=== PATIENT | male | born 2000 | race American Indian/Alaskan Native ===

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

== ENCOUNTER 2021-11-08 23:51 | Emergency (ER) | payer OTHER, SELFPAY ==
[2021-11-09 00:36] VITALS: BP 149/66; PULSE 86; RESP 18; TEMP 36.2; O2SAT 99; BMI 33.3
--- NOTE | 2021-11-09 01:12 | ED_ITS ---
HPI - Burn/Smoke Inhalation General Chief complaint: Burn/Smoke Inhalation Stated complaint: got acid on his arm at work Time Seen by Provider: 11/09/21 01:12 Source: patient Mode of arrival: Ambulatory History of Present Illness HPI Narrative: Patient is a 21-year-old male who presents with left wrist burn. He was at work cleaning when he spilled some acetone on his left wrist. It has been about 24 hours he thought that it was getting bigger. He he has no medical history. Related Data Previous Rx's Medication Instructions Recorded oxycodone-acetaminophen 5 mg-325 1 tab PO Q4HP PRN #30 tabs 10/15/16 mg tablet loperamide 2 mg tablet 2 mg PO Q4H #14 tabs 12/15/18 Allergies Allergy/AdvReac Type Severity Reaction Status Date / Time haloperidol [From Haldol] Allergy Severe Agitated Verified 05/02/19 09:59 Review of Systems Review of Systems Narrative: GENERAL: Denies chills,fever HEENT: Denies throat pain RESPIRATORY: Denies dyspnea, cough, wheezing CARDIOVASCULAR: Denies chest pain, palpitations GASTROINTESTINAL: Denies nausea, vomiting MUSCULOSKELETAL: Denies extremity pain, injury SKIN: See HPI NEUROLOGIC: Denies weakness, dizziness, headache, numbness 8 point review of systems is negative except for those stated above and HPI Patient History Medical History History of appendicitis Social History Smoking Status: Current some day smoker Smoking Status: Current some day smoker tobacco type: cigarettes alcohol intake frequency: 0-2 drinks per day Substance Use Type: does not use Exam Initial Vital Signs Initial Vital Signs: Vital Signs Temperature 97.2 F L 11/09/21 00:36 Pulse Rate 86 11/09/21 00:36 Respiratory Rate 18 11/09/21 00:36 Blood Pressure 149/66 H 11/09/21 00:36 Pulse Oximetry 99 11/09/21 00:36 Oxygen Delivery Method 11/09/21 00:36 GENERAL: Well-appearing, well-nourished and in no acute distress. CARDIOVASCULAR: peripheral pulses in tact, cap refill <2 sec RESPIRATORY: No respiratory distress, speaks in full sentences without difficulty EXTREMITIES: Normal range of motion, no clubbing or edema. Neurovascularly intact NEUROLOGICAL: Cranial nerves II through XII grossly intact. Normal gait and s peech. SKIN: Mild erythema on dorsal side biggest area is 2 cm x 1 cm it is non circumferential there is no streaking Course Vital Signs Vital signs: Vital Signs - 8 hr 09/24/ 00:36 Temperature 97.2 F L Pulse Rate 86 Respiratory Rate 18 Blood Pressure 149/66 H Pulse Oximetry 99 Oxygen Delivery Method Room Air MDM - Burn/Smoke Inhalation MDM Narrative Medical decision making narrative: The patient has a very small dorsal wound on the left wrist. Circumferential there is no blister. Probable chemical burn. At this time supportive care only. It is dressed with Xerfoam, non stick gauze and Kerlix. Discharge Plan Departure Patient Disposition: Home Clinical Impression: Chemical burn Instructions: DI for Ngo Activity Restrictions/Additional Instructions: *You have been diagnosed with left wrist chemical for *What to do: Keep area clean and dry with soap and water. May apply antibiotic ointment 1 to 2 times a day. Apply dressing. Monitor *Continue to take medications as directed Ibuprofen 600 mg every 6 hours if needed for [id number] pain *Follow up with your primary care provider in 2-3 days or call [phone] *Return to ER if you should have increasing redness pain swelling or any new, worsening or concerning symptoms Prescriptions: No Action loperamide 2 mg tablet 2 mg PO Q4H Qty: 14 0RF Rx Instructions: after each loose stool until symptoms controlled;do not exceed 16 mg total dose in 24 hrs oxycodone-acetaminophen 5 MG/325 MG tablet 1 tab PO Q4HP PRNQty: 30 0RF Visit Report Forms: Patient Portal/API
== END 2021-11-09 01:36 | disposition home or self-care (01) ==
PROVIDERS: Emergency Provider Emergency Medicine
DX: T23.472A Corrosion of unspecified degree of left wrist, initial encounter (principal); X58.XXXA Exposure to other specified factors, initial encounter; Y99.0 Civilian activity done for income or pay
CPT/HCPCS: 99281

== ENCOUNTER 2022-09-20 17:19 | Emergency (ER) | payer OTHER, SELFPAY ==
[2022-09-20] VITALS (12 sets, daily range): BP systolic 138–157; BP diastolic 78–85; PULSE 70–103; RESP 18–24; TEMP 36.8; O2SAT 97–100; BMI 31.6
[2022-09-20] MEDS: ONDANSETRON 4 MG/2 ML INJ IV (17:36)
[2022-09-20] MEDS: SODIUM CHLORIDE 0.9% 1,000 ML 1000 ML IV ×2 (17:42→18:10)
[2022-09-20 18:04] LABS: Add Manual Diff / Slide Review NO; BUN Creatinine Ratio 6.9 (6-22); Basophils Absolute Auto 100 /uL (0-100); Basophils Percent Auto 0.3 % (0-2); Blood Urea Nitrogen 6 mg/dL (9-20); Calcium 10.1 mg/dL (8.4-10.2); Carbon Dioxide 21 mmol/L (22-32); Chloride 102 mmol/L (98-107); Eosinophils Absolute Auto 0 /uL (0-450); Estimated Glomerular Filt Rate > 60 mL/min (>60); Glucose 146 mg/dL (70-100); HEMOLYSIS < 15 (0-50); Hematocrit 45.2 % (41-53); Hemoglobin 15.9 g/dL (13.5-17.5); Lymphocytes Absolute Auto 1100 /uL (1100-4500); Lymphocytes Percent Auto 5.1 % (25-40); Mean Corpuscular HGB Conc 35.2 % (30-36); Mean Corpuscular Hemoglobin 28.9 PG (26-34); Mean Corpuscular Volume 82.1 fL (80-100); Monocytes Absolute Auto 500 /uL (0-900); Monocytes Percent Auto 2.6 % (3-14); Neutrophils Absolute Auto 19200 /uL (1500-7000); Platelet Count 354 X10^3/uL (150-400); Potassium 3.5 mmol/L (3.4-5.1); Red Cell Distribution Width 13.7 % (11.6-14.8); Sodium 140 mmol/L (137-145); White Blood Cell Count 20.9 X10^3/uL (4.5-11.0)
--- NOTE | 2022-09-20 18:05 | ED.NAVMDI ---
HPI - Nausea/Vomiting/Diarrhea General Chief complaint: Nausea/Vomiting/Diarrhea Stated complaint: throwing up since 1am . body going numb Time Seen by Provider: 09/20/22 17:39 Source: patient Mode of arrival: Ambulatory History of Present Illness HPI Narrative: 22-year-old male smoker with history of anxiety and hyperemesis presents with a chief complaint of multiple episodes of nausea and vomiting since about 1:00 a.m. this morning. He states he has had this happen on multiple occasions and has been told it is because of the amount of cannabis he consumes. He denies any fever or chills. He denies any exposure to bad food, recent travel or change in medications. He has developed gradually worsening lower abdominal discomfort that seems to worsen when he vomits and improves when he is not. He denies any trouble urinating and has had no constipation or diarrhea. Related Data Previous Rx's Medication Instructions Recorded oxycodone-acetaminophen 5 mg-325 1 tab PO Q4HP PRN #30 tabs 10/15/16 mg tablet loperamide 2 mg tablet 2 mg PO Q4H #14 tabs 12/15/18 ondansetron 4 mg disintegrating 4 mg PO TID-QID PRN nausea and 09/20/22 tablet vomiting #10 tabs pantoprazole 40 mg tablet,delayed 40 mg PO DAILY #30 tabs 09/20/22 release (Protonix) Allergies Allergy/AdvReac Type Severity Reaction Status Date / Time haloperidol [From Haldol] Allergy Severe Agitated Verified 05/02/19 09:59 Review of Systems Review of Systems Narrative: GENERAL: See HPI HEENT: Denies sinus pain, ear pain, sore throat, difficulty swallowing, dizziness. RESPIRATORY: Denies dyspnea, cough, wheezing, hemoptysis, sputum. CARDIOVASCULAR: Denies chest pain, palpitations, orthopnea, edema, GASTROINTESTINAL: See HPI : Denies dysuria, frequency, incontinence, hematuria, urinary retention. MUSCULOSKELETAL: denies weakness, joint pain, or bony pain SKIN: Denies rash, skin lesions, or other NEUROLOGIC: Denies weakness, headache, numbness, change in speech, confusion, seizures, incoordination. PSYCHIATRIC: No concerning psychosocial issues. 12 point review of systems is negative except for those stated above Patient History Medical History History of appendicitis Social History Smoking Status: Former smoker Smoking Status: Former smoker tobacco type: cigarettes alcohol intake frequency: 0-2 drinks per day Substance Use Type: marijuana Exam Narrative Exam Narrative: GENERAL: [22] year old patient appears stated age. Well-developed patient, in mild distress. Holding an emesis bag HEAD: Atraumatic. Normocephalic. EYES: Pupils equal round and reactive. Extraocular motions intact. No scleral icterus. No injection or drainage. ENT: Nose without bleeding, purulent drainage. Throat without erythema, tonsillar hypertrophy or exudate. Airway patent. NECK: Trachea midline. Non tender CARDIOVASCULAR: Regular rate and rhythm without murmurs, gallops, or rubs. RESPIRATORY: Clear to auscultation. Breath sounds equal bilaterally. No wheezes, rales, or rhonchi. GASTROINTESTINAL: Abdomen soft, mildly tender across the lower abdomen, nondistended. EXTREMITIES: No edema or joint tenderness. BACK: Nontender without deformity or crepitance. No flank tenderness. NEURO: AOx3. SKIN: No rash or erythema of visible areas Initial Vital Signs Initial Vital Signs: Vital Signs Temperature 98.2 F 09/20/22 17:20 Pulse Rate 84 09/20/22 17:20 Respiratory Rate 24 09/20/22 17:20 Blood Pressure 157/84 H 09/20/22 17:20 Pulse Oximetry 99 09/20/22 17:20 Oxygen Delivery Method Room Air 09/20/22 17:20 Course Orders Ordered: ED Orders 09/20/22 17:27 Basic Metabolic Panel Stat Complete Blood Count AUTO DIFF Stat 09/20/22 19:16 Urine Microscopic Stat Ondansetron HCl (Ondansetron 4 Mg/2 Ml Inj) 4 mg IV NOW PRN PRN Reason: Nausea And Vomiting Last Admin: 09/20/22 17:36 Dose: 4 mg Documented By: JERI Discontinued Medications Sodium Chloride (Normal Saline 0.9%) 1,000 mls @ 1,000 mls/hr IV BOLUS ONE Stop: 09/20/22 18:38 Last Infusion: 09/20/22 18:21 Dose: 0 mls/hr Documented By: Admin: 09/20/22 17:42 Dose: 1,000 mls/hr Documented By: DEVIKA Sodium Chloride (Normal Saline 0.9%) 1,000 mls @ 1,000 mls/hr IV BOLUS ONE Stop: 09/20/22 19:03 Last Infusion: 09/20/22 19:24 Dose: 0 mls/hr Documented By: Admin: 09/20/22 18:10 Dose: 1,000 mls/hr Documented By: DEVIKA Metoclopramide HCl (Metoclopramide 10 Mg/2 Ml Inj) 10 mg IV NOW ONE Stop: 09/20/22 18:05 Last Admin: 09/20/22 18:10 Dose: 10 mg Documented By: DEVIKA Ondansetron HCl (Ondansetron 4 Mg Odt Prepack) 1 bottle MISC SEEINSTR ONE Stop: 09/20/22 21:23 Last Admin: 09/20/22 21:30 Dose: 1 bottle Documented By: NIESHA Pantoprazole Sodium (Pantoprazole 40 Mg Vial) 40 mg IV NOW ONE Stop: 09/20/22 18:05 Last Admin: 09/20/22 18:10 Dose: 40 mg Documented By: DEVIKA Vital Signs Vital signs: Vital Signs - 8 hr 09/20/22 19:00 09/20/22 19:30 09/20/22 20:00 Temperature Pulse Rate 83 76 91 H Respiratory Rate Blood Pressure Pulse Oximetry 100 100 97 Oxygen Delivery Method 09/20/22 20:30 09/20/22 21:00 09/20/22 17:20 Temperature 98.2 F Pulse Rate 72 82 84 Respiratory Rate 24 Blood Pressure 157/84 H Pulse Oximetry 97 97 99 Oxygen Delivery Method Room Air 09/20/22 17:24 09/20/22 17:30 09/20/22 18:00 Temperature Pulse Rate 100 H 79 70 Respiratory Rate Blood Pressure Pulse Oximetry 100 100 100 Oxygen Delivery Method 09/20/22 18:30 09/20/22 18:48 09/20/22 18:48 Temperature Pulse Rate 103 H 85 Respiratory Rate Blood Pressure 140/85 Pulse Oximetry 100 99 Oxygen Delivery Method MDM - Nausea/Vomiting/Diarrhea Lab Data 09/20/22 17:27 09/20/22 17:27 Labs: Lab Results 09/20/22 09/20/22 Range/Units 17:27 17:27 WBC 20.9 H (4.5-11.0) X10^3/uL RBC 5.50 (4.5-5.9) X10^6/uL Hgb 15.9 (13.5-17.5) g/dL Hct 45.2 (41-53) % MCV 82.1 (80-100) fL MCH 28.9 (26-34) PG MCHC 35.2 (30-36) % RDW 13.7 (11.6-14.8) % Plt Count 354 (150-400) X10^3/uL Neut % (Auto) 92.0 H (50-75) % Lymph % (Auto) 5.1 L (25-40) % [place] % (Auto) 2.6 L (3-14) % Eos % (Auto) 0.0 L (2-4) % Baso % (Auto) 0.3 (0-2) % Neut # (Auto) 52851 H (3847-2244) /uL Lymph # (Auto) 1100 (9414-5814) /uL [place] # (Auto) 500 (0-900) /uL Eos # (Auto) 0 (0-450) /uL Baso # (Auto) 100 (0-100) /uL Sodium 140 (137-145) mmol/L Potassium 3.5 (3.4-5.1) mmol/L Chloride 102 (98-107) mmol/L Carbon Dioxide 21 L (22-32) mmol/L BUN 6 L (9-20) mg/dL Creatinine 0.87 (0.66-1.25) mg/dL Estimated GFR > 60 (>60) mL/min BUN/Creatinine Ratio 6.9 (6-22) Glucose 146 H (70-100) mg/dL Calcium 10.1 (8.4-10.2) mg/dL Urine Dip Bedside Urine Glucose Negative Bedside Urine Bilirubin - Negative Bedside Urine Ketone +++ 80 Urine Specific [place] 1.01 Bedside Urine Occult Blood - Negative Bedside Urine Protein - Negative Bedside Urine Urobilinogen - Negative Bedside Urine Nitrite - Negative Bedside Urine Leukocytes - Negative Esterase MDM Narrative Medical decision making narrative: CC: 22-year-old male with nausea and vomiting Complicating co-morbidities: Anxiety cannabis hyperemesis Data collected from: Patient Medical records reviewed: Prior notes reviewed in our EMR Differential considered, but not limited to: Cannabis hyperemesis versus viral infection versus electrolyte abnormality versus dehydration versus other Exam documented above, pertinent findings include: Heart rate regular, lungs clear, abdomen soft, mucous membranes are moist Lab Test results independently reviewed as above. Pertinent findings: Leukocytosis, no signs of anemia, electrolytes and renal function within normal. Leukocytosis thought related to physiologic stress from vomiting, patient absent of any notable or localized pain, no fever, infection considered but thought unlikely Treatments: Fluids, Zofran, Reglan, Protonix Re-evaluations: Significantly improved after the above-stated therapies Discussion: Patient with nausea and vomiting and significant improvement after above-stated therapies. He is had no fever or chills and though there is an of a white blood cell count it seems most likely consistent with physiologic stress associated with persistent vomiting. He has tremendous improvement after above-stated therapies and is tolerating orals without difficulty. Return precautions given and questions answered to his apparent satisfaction Disposition: see below, along with detailed discharge instructions that have been reviewed with patient as well as indications for ED re-evaluation and additional outpatient follow up Discharge Plan Departure Patient Disposition: Home Clinical Impression: Vomiting Instructions: DI for Dehydration -- Adult, DI for Vomiting -- Adult Activity Restrictions/Additional Instructions: *You have been diagnosed with [nausea and vomiting] * As we discussed your history and physical exam as well as labs and imaging are very reassuring. There is no evidence of any severe diagnoses that would require a specific or immediate intervention. *What to do: *Please continue to take your regular medications as directed. [x ] New medication prescriptions sent to your pharmacy: [ [facility]] *Please follow up with your primary care provider in 2-3 days, call for an appointment. Let them know you were seen in the Emergency Department and that we ask that you be seen in follow up. We will electronically transmit a record of today's note if your PCP is in our system *Please consider a clear liquid diet for the next 24-48 hours and then slowly advance to regular as tolerated. Also, try to avoid alcohol, nicotine, caffeine, spicy, acidic or fatty foods as this may worsen your symptoms *If you do not have a primary care provider please contact the [facility] Resource line at [phone]. They will ask some questions about your medical history and help get you set up with a doctor in the community. *Return to Emergency Department if you should have any new, worsening or concerning symptoms, such as [fever greater than 101 F, shaking chills, worsening pain, persistent vomiting or other bothersome symptoms] Prescriptions: New pantoprazole [Protonix] 40 mg tablet,delayed release (DR/EC) 40 mg PO DAILY Qty: 30 0RF ondansetron 4 mg tablet,disintegrating 4 mg PO TID-QID PRN (Reason: nausea and vomiting) Qty: 10 0RF No Action loperamide 2 mg tablet 2 mg PO Q4H Qty: 14 0RF Rx Instructions: after each loose stool until symptoms controlled;do not exceed 16 mg total dose in 24 hrs oxycodone-acetaminophen 5 MG/325 MG tablet 1 tab PO Q4HP PRNQty: 30 0RF Stand Alone Forms: Patient Portal/API
[2022-09-20] MEDS: METOCLOPRAMIDE 10 MG/2 ML INJ IV (18:10)
[2022-09-20] MEDS: PANTOPRAZOLE 40 MG VIAL IV (18:10)
[2022-09-20] MEDS: ONDANSETRON 4 MG ODT PREPACK 1 BOTTLE MISC (21:30)
== END 2022-09-20 21:38 | disposition home or self-care (01) ==
PROVIDERS: Emergency Medicine; Emergency Provider Emergency Medicine
DX: R11.2 Nausea with vomiting, unspecified (principal); R79.89 Other specified abnormal findings of blood chemistry; F12.90 Cannabis use, unspecified, uncomplicated
CPT/HCPCS: 36415; 80048; 81003; 85025; 96361; 96374; 96375; 99284; C9113; J2405; J2765

== ENCOUNTER 2023-10-09 18:56 | Emergency (ER) | payer OTHER, SELFPAY ==
--- NOTE | 2023-10-09 19:04 | ED_ITS ---
HPI - Abdominal Pain General Chief Complaint: Abdominal Pain Stated Complaint: N/V, face numbness Time Seen by Provider: 10/09/23 18:57 History of Present Illness HPI narrative: 23-year-old male with history of marijuana use presents with 1 day of midepigastric pain with nausea and vomiting. Patient states this is similar to an episode that he experienced 1 year ago here in this emergency department. He states that occasionally after vomiting his face feels numb. Related Data Previous Rx's Medication Instructions Recorded oxycodone-acetaminophen 5 mg-325 1 tab PO Q4HP PRN #30 tabs 10/15/16 mg tablet loperamide 2 mg tablet 2 mg PO Q4H #14 tabs 12/15/18 ondansetron 4 mg disintegrating 4 mg PO TID-QID PRN nausea and 09/20/22 tablet vomiting #10 tabs pantoprazole 40 mg tablet,delayed 40 mg PO DAILY #30 tabs 09/20/22 release (Protonix) Allergies Allergy/AdvReac Type Severity Reaction Status Date / Time haloperidol [From Haldol] Allergy Severe Agitated Verified 05/02/19 09:59 Patient History Medical History History of appendicitis Social History Smoking Status: Former smoker Smoking Status: Former smoker tobacco type: cigarettes alcohol intake frequency: 0-2 drinks per day Substance Use Type: marijuana Exam Initial Vital Signs Initial Vital Signs: Vital Signs Temperature 97.6 F 10/09/23 19:07 Pulse Rate 82 10/09/23 19:07 Respiratory Rate 14 10/09/23 19:07 Blood Pressure 168/99 H 10/09/23 19:07 Pulse Oximetry 100 10/09/23 19:07 Oxygen Delivery Method Room Air 10/09/23 19:07 Const: Awake, alert, no acute distress, nontoxic appearing Cardiac: regular rate, regular rhythm RESP: unlabored, clear bilaterally, no wheezing GI: Soft, nontender, nondistended, no rebound, no guarding Skin: Warm, Dry, intact, no rashes Neuro: AO x3, CN II-XII grossly intact, moves all extremities Course Orders Ordered: Discontinued Medications Al Hydrox/Mg Hydrox/Simethicone (Mag Hydrox/Alum/Simeth 30 Ml Udc) 30 ml PO NOW ONE Stop: 10/09/23 19:04 Last Admin: 10/09/23 19:56 Dose: 30 ml Documented By: HARSHAD Droperidol (Droperidol 5 Mg/2 Ml Vial) 2.5 mg IV NOW ONE Stop: 10/09/23 19:58 Last Admin: 10/09/23 20:02 Dose: 2.5 mg Documented By: HARSHAD Sodium Chloride (Normal Saline 0.9%) 1,000 mls @ 1,000 mls/hr IV BOLUS ONE Stop: 10/09/23 20:02 Last Infusion: 10/09/23 19:56 Dose: Infused Documented By: Admin: 10/09/23 19:12 Dose: 1,000 mls/hr Documented By: Lidocaine HCl (Lidocaine Viscous 2% 15 Ml Solution) 15 ml PO NOW ONE Stop: 10/09/23 19:04 Last Admin: 10/09/23 19:55 Dose: 15 ml Documented By: HARSHAD Ondansetron HCl (Ondansetron 4 Mg/2 Ml Inj) 4 mg IV NOW ONE Stop: 10/09/23 19:04 Last Admin: 10/09/23 19:12 Dose: 4 mg Documented By: Vital Signs Vital signs: Vital Signs - 8 hr 10/09/23 19:07 Temperature 97.6 F Pulse Rate 82 Respiratory Rate 14 Blood Pressure 168/99 H Pulse Oximetry 100 Oxygen Delivery Method Room Air MDM - Abdominal Pain Differential Diagnosis Differential diagnosis: Likely abdominal pain, gastroenteritis and pancreatitis Lab Data 10/09/23 19:07 10/09/23 19:07 Labs: Lab Results 10/09/23 Range/Units 19:07 WBC 21.1 H (4.5-11.0) X10^3/uL RBC 5.59 (4.5-5.9) X10^6/uL Hgb 16.3 (13.5-17.5) g/dL Hct 45.9 (41-53) % MCV 82.1 (80-100) fL MCH 29.1 (26-34) PG MCHC 35.5 (30-36) % RDW 13.4 (11.6-14.8) % Plt Count 384 (150-400) X10^3/uL Neut % (Auto) 89.7 H (50-75) % Lymph % (Auto) 6.9 L (25-40) % [place] % (Auto) 3.0 (3-14) % Eos % (Auto) 0.0 L (2-4) % Baso % (Auto) 0.4 (0-2) % Neut # (Auto) 25951 H (0001-8600) /uL Lymph # (Auto) 1500 (3040-5814) /uL [place] # (Auto) 600 (0-900) /uL Eos # (Auto) 0 (0-450) /uL Baso # (Auto) 100 (0-100) /uL Sodium 139 (137-145) mmol/L Potassium 3.7 (3.4-5.1) mmol/L Chloride 104 (98-107) mmol/L Carbon Dioxide 18 L (22-32) mmol/L BUN 7 L (9-20) mg/dL Creatinine 0.98 (0.66-1.25) mg/dL Estimated GFR > 60 (>60) mL/min BUN/Creatinine Ratio 7.1 (6-22) Glucose 139 H (70-100) mg/dL Calcium 9.9 (8.4-10.2) mg/dL Total Bilirubin 1.1 (0.2-1.3) mg/dL AST 27 (17-59) IU/L ALT 35 (<50) IU/L Alkaline Phosphatase 76 (38-126) U/L Total Protein 8.8 H (6.3-8.2) g/dL Albumin 5.0 (3.5-5.0) g/dL Globulin 3.8 (1.7-4.1) g/dL Albumin/Globulin Ratio 1.3 (1.0-2.8) Lipase 68 (23-300) U/L MDM Narrative Medical decision making narrative: N/V/Midpigastric pain. Patient states similar to previous episode, review of ED note suspects cannabinoid hyperemesis. Abdomen soft, no reproducible tendernes to light or deep palpation. Labs show leukocytosis, likely reactive from vomiting. Seen 1 year prior during patient's similar episode. Vomited after zofran, will trial droperidol. Patient reports agitation after Haldol, however hopefully he will have a different response to droperidol. Patient reports complete resolution of his symptoms after droperidol, stating that he feels much better and is requesting to leave. Did not wish to stay for p.o. trial. Patient counseled on cessation of marijuana. Discharge Plan Departure Patient Disposition: Home Clinical Impression: Nausea & vomiting, Abdominal pain, Marijuana use Instructions: Nausea and Vomiting-Adult Activity Restrictions/Additional Instructions: Follow a light diet for the next several days, make sure to drink plenty of fluids. I do suspect that marijuana use is at least partially contributing to your symptoms, and I recommend complete cessation so that this is not continued to happen. Please follow up with your primary care doctor Prescriptions: No Action loperamide 2 mg tablet 2 mg PO Q4H Qty: 14 0RF Rx Instructions: after each loose stool until symptoms controlled;do not exceed 16 mg total dose in 24 hrs oxycodone-acetaminophen 5 MG/325 MG tablet 1 tab PO Q4HP PRNQty: 30 0RF pantoprazole [Protonix] 40 mg tablet,delayed release (DR/EC) 40 mg PO DAILY Qty: 30 0RF ondansetron 4 mg tablet,disintegrating 4 mg PO TID-QID PRN (Reason: nausea and vomiting) Qty: 10 0RF Stand Alone Forms: Patient Portal/API
[2023-10-09 19:07] VITALS: BP 168/99; PULSE 82; RESP 14; TEMP 36.4; O2SAT 100; BMI 28.2
[2023-10-09] MEDS: ONDANSETRON 4 MG/2 ML INJ IV (19:12)
[2023-10-09] MEDS: SODIUM CHLORIDE 0.9% 1,000 ML 1000 ML IV (19:12)
[2023-10-09 19:21] LABS: Add Manual Diff / Slide Review NO; Basophils Absolute Auto 100 /uL (0-100); Basophils Percent Auto 0.4 % (0-2); Eosinophils Absolute Auto 0 /uL (0-450); Hematocrit 45.9 % (41-53); Hemoglobin 16.3 g/dL (13.5-17.5); Lymphocytes Absolute Auto 1500 /uL (1100-4500); Lymphocytes Percent Auto 6.9 % (25-40); Mean Corpuscular HGB Conc 35.5 % (30-36); Mean Corpuscular Hemoglobin 29.1 PG (26-34); Mean Corpuscular Volume 82.1 fL (80-100); Monocytes Absolute Auto 600 /uL (0-900); Neutrophils Absolute Auto 18900 /uL (1500-7000); Neutrophils Percent Auto 89.7 % (50-75); Platelet Count 384 X10^3/uL (150-400); Red Blood Cell Count 5.59 X10^6/uL (4.5-5.9); Red Cell Distribution Width 13.4 % (11.6-14.8); White Blood Cell Count 21.1 X10^3/uL (4.5-11.0)
[2023-10-09 19:29] LABS: Alanine Aminotransferase 35 IU/L (<50); Albumin Globulin Ratio 1.3 (1.0-2.8); Alkaline Phosphatase 76 U/L (38-126); Aspartate Aminotransferase 27 IU/L (17-59); BUN Creatinine Ratio 7.1 (6-22); Bilirubin Total 1.1 mg/dL (0.2-1.3); Blood Urea Nitrogen 7 mg/dL (9-20); Calcium 9.9 mg/dL (8.4-10.2); Carbon Dioxide 18 mmol/L (22-32); Chloride 104 mmol/L (98-107); Estimated Glomerular Filt Rate > 60 mL/min (>60); Globulin 3.8 g/dL (1.7-4.1); Glucose 139 mg/dL (70-100); HEMOLYSIS 18 (0-50); Lipase 68 U/L (23-300); Potassium 3.7 mmol/L (3.4-5.1); Sodium 139 mmol/L (137-145); Total Protein 8.8 g/dL (6.3-8.2)
[2023-10-09] MEDS: LIDOCAINE VISCOUS 2% 15 ML SOLUTION PO (19:55)
[2023-10-09] MEDS: MAG HYDROX/ALUM/SIMETH 30 ML UDC PO (19:56)
[2023-10-09] MEDS: DROPERIDOL 5 MG/2 ML VIAL 2.5 MG IV (20:02)
[2023-10-09 20:36] VITALS: BP 120/69; PULSE 110; RESP 14; O2SAT 98
== END 2023-10-09 20:37 | disposition home or self-care (01) ==
PROVIDERS: Emergency Provider Emergency Medicine
DX: R10.13 Epigastric pain (principal); R11.2 Nausea with vomiting, unspecified; F12.90 Cannabis use, unspecified, uncomplicated
CPT/HCPCS: 36415; 80053; 83690; 85025; 96374; 96375; 99284; J1790; J2405

== ENCOUNTER 2023-10-10 07:37 | Emergency (ER) | payer OTHER, SELFPAY ==
--- NOTE | 2023-10-10 07:39 | ED.GENADULT ---
HPI - General Adult General Chief complaint: Recheck/Abnormal Lab/Rx Stated complaint: unable to sleep Time Seen by Provider: 10/10/23 07:39 History of Present Illness HPI narrative: 23-year-old young man who was seen last night with complaints of nausea and vomiting felt to be secondary to cannabinoid hyperemesis syndrome. Workup was unremarkable. He was subsequently given droperidol which helped he was discharged home. He returns the morning complaining that he did not sleep all night, he is having restless leg type symptoms worse in the right leg than left leg. Apparently it had similar complaints with Haldol previously. He did take some Tylenol which did not help. His mom brought him in again because he did not sleep last night. He is no additional complaints and the nausea and vomiting have resolved. Related Data Previous Rx's Medication Instructions Recorded oxycodone-acetaminophen 5 mg-325 1 tab PO Q4HP PRN #30 tabs 10/15/16 mg tablet loperamide 2 mg tablet 2 mg PO Q4H #14 tabs 12/15/18 ondansetron 4 mg disintegrating 4 mg PO TID-QID PRN nausea and 09/20/22 tablet vomiting #10 tabs pantoprazole 40 mg tablet,delayed 40 mg PO DAILY #30 tabs 09/20/22 release (Protonix) Allergies Allergy/AdvReac Type Severity Reaction Status Date / Time haloperidol [From Haldol] Allergy Severe Agitated Verified 05/02/19 09:59 droperidol AdvReac Muscle Pain Verified 10/10/23 08:05 Review of Systems Review of Systems Narrative: Pertinent positive and negative findings as per HPI Patient History Medical History History of appendicitis Social History Smoking Status: Former smoker Smoking Status: Former smoker tobacco type: cigarettes alcohol intake frequency: 0-2 drinks per day Substance Use Type: marijuana Exam Initial Vital Signs Initial Vital Signs: Vital Signs Temperature 98.1 F 10/10/23 07:53 Pulse Rate 87 10/10/23 07:53 Respiratory Rate 16 10/10/23 07:53 Blood Pressure 159/91 H 10/10/23 07:53 Pulse Oximetry 16 L 08/24/24 07:53 Oxygen Delivery Method Room Air 10/10/23 07:53 General: Alert appropriate in no acute distress Respiratory: Able to speak in full sentences, no obvious respiratory distress Skin: No obvious rashes, warm and dry Neurologic: Grossly intact no obvious asymmetries or abnormalities Psych: appropriate insight and affect, cooperative Extremities: He is rubbing his legs and complaining of uncontrolled movement that is subjective he is able to walk to the room without difficulty Course Orders Ordered: Discontinued Medications Diazepam (Diazepam 5 Mg Tablet) 5 mg PO NOW ONE Stop: 10/10/23 07:55 Last Admin: 10/10/23 08:00 Dose: 5 mg Documented By: MEERA Vital Signs Vital signs: Vital Signs - 8 hr 10/10/23 07:53 Temperature 98.1 F Pulse Rate 87 Respiratory Rate 16 Blood Pressure 159/91 H Pulse Oximetry 16 L Oxygen Delivery Method Room Air Medical Decision Making [facility] Narrative Medical decision making narrative: 23-year-old gentleman seen approximately 12 hours ago with nausea and vomiting. Thought to be related to cannabinoid hyperemesis syndrome. He was feeling better at time of discharge after fluids and a dose of droperidol. Once home he was noticing increasing muscle activity in his legs right greater than left. He did take some Tylenol this is not effective. He was not able to sleep all night and his mom brings him back for further evaluation. At this point labs and studies from last night reviewed with no acute findings appreciated. Patient himself is entirely benign on exam. We discussed the use of benzodiazepines to help with restless leg type symptoms which can be a side effect of droperidol. We will give him a dose of 5 mg of Valium and send him home to see if this is effective in controlling some of the pain and helping him sleep. At this point there was no evidence of life-threatening abnormalities, no indication for additional blood work or imaging. He needs safe for discharge Discharge Plan Departure Patient Disposition: Home Clinical Impression: Insomnia Qualifiers: Insomnia type: unspecified Qualified Code(s): G47.00 - Insomnia, unspecified Adverse drug effect Qualifiers: Encounter type: initial encounter Qualified Code(s): T50.905A - Adverse effect of unspecified drugs, medicaments and biological substances, initial encounter Activity Restrictions/Additional Instructions: Sorry that you needed to returned to the emergency department this morning I suspect that the droperidol that helped with your other symptoms is causing the mild muscle spasms in your legs which is keeping you awake. I have given you a dose of 5 mg of diazepam/Valium. This is a benzodiazepine and directly helps with muscle spasm and 1 of the side effects is it tends to make you sleepy. I am hoping that with the Tylenol that you have already taken and the Valium, your legs are able to rest enough that you are able to get some sleep today. While sleep is vital, missing a night of sleep does not require any additional workup or evaluation in the emergency department. If you are able to try to get nap this morning but not sleep past noon. Sleeping pass noon will significantly impair trying to get to sleep tonight. This evening you might try 1-2 mg of melatonin. Melatonin is a hormone that helps reset circadian rhythms it is NOT a sleeping pill and does not work better with higher doses. If you find that you are getting worse or develop any new symptoms, please feel free to return to the emergency department for further evaluation. Prescriptions: No Action loperamide 2 mg tablet 2 mg PO Q4H Qty: 14 0RF Rx Instructions: after each loose stool until symptoms controlled;do not exceed 16 mg total dose in 24 hrs oxycodone-acetaminophen 5 MG/325 MG tablet 1 tab PO Q4HP PRNQty: 30 0RF pantoprazole [Protonix] 40 mg tablet,delayed release (DR/EC) 40 mg PO DAILY Qty: 30 0RF ondansetron 4 mg tablet,disintegrating 4 mg PO TID-QID PRN (Reason: nausea and vomiting) Qty: 10 0RF Stand Alone Forms: Patient Portal/API
[2023-10-10 07:53] VITALS: BP 159/91; PULSE 87; RESP 16; TEMP 36.7; O2SAT 16; BMI 29.2
[2023-10-10] MEDS: diazePAM 5 MG TABLET PO (08:00)
== END 2023-10-10 08:10 | disposition home or self-care (01) ==
PROVIDERS: Emergency Provider Emergency Medicine
DX: G47.00 Insomnia, unspecified (principal); T50.905A Adverse effect of unspecified drugs, medicaments and biological substances, initial encounter
CPT/HCPCS: 99283

== ENCOUNTER 2023-10-10 21:34 | Emergency (ER) | payer OTHER, SELFPAY ==
[2023-10-10 21:54] VITALS: BP 143/86; PULSE 70; RESP 16; TEMP 37.3; O2SAT 98; BMI 29.1
--- NOTE | 2023-10-10 23:18 | ED_ITS ---
HPI - Recheck/Abnormal Lab/Rx General Chief Complaint: Recheck/Abnormal Lab/Rx Stated Complaint: return from last night, medication reaction Time Seen by Provider: 10/10/23 21:38 Source: patient and family Mode of arrival: Ambulatory History of Present Illness HPI narrative: 23-year-old male with history of anxiety, cannabinoid use, cannabinoid hyperemesis syndrome presents for restless legs and insomnia for the last 30 hours. Patient was seen last night by myself for nausea, vomiting, midepigastric pain. Patient was given 2.5 mg of IV droperidol after failure of Zofran therapy. Droperidol chosen for fewer extrapyramdial side effect profile and hx of CHS. At time of discharge last night patient stated he felt entirely better, texting on his cell phone, requesting to be discharged from the hospital. Patient presents with mother stating that he has not been able to sleep since yesterday. He presented to the emergency department earlier today and was given 5 mg p.o. Valium. He states that it did not help his anxiety or his restless legs and he could still can not sleep even after taking a dose of Benadryl. Mother at bedside is extremely upset demanding that we ?fix? her son. Related Data Previous Rx's Medication Instructions Recorded oxycodone-acetaminophen 5 mg-325 1 tab PO Q4HP PRN #30 tabs 10/15/16 mg tablet loperamide 2 mg tablet 2 mg PO Q4H #14 tabs 12/15/18 ondansetron 4 mg disintegrating 4 mg PO TID-QID PRN nausea and 09/20/22 tablet vomiting #10 tabs pantoprazole 40 mg tablet,delayed 40 mg PO DAILY #30 tabs 09/20/22 release (Protonix) hydroxyzine pamoate 50 mg capsule 50 mg PO TID PRN anxiety #30 caps 10/11/23 Allergies Allergy/AdvReac Type Severity Reaction Status Date / Time haloperidol [From Haldol] Allergy Severe Agitated Verified 05/02/19 09:59 droperidol AdvReac Muscle Pain Verified 10/10/23 08:05 Patient History Medical History History of appendicitis Social History Smoking Status: Former smoker Smoking Status: Former smoker tobacco type: cigarettes alcohol intake frequency: 0-2 drinks per day Substance Use Type: marijuana Exam Initial Vital Signs Initial Vital Signs: Vital Signs Temperature 99.2 F 10/10/23 21:54 Pulse Rate 70 10/10/23 21:54 Respiratory Rate 16 10/10/23 21:54 Blood Pressure 143/86 H 10/10/23 21:54 Pulse Oximetry 98 10/10/23 21:54 Oxygen Delivery Method Room Air 10/10/23 21:54 Const: Awake, alert, no acute distress, resting comfortably in bed Cardiac: regular rate, regular rhythm RESP: unlabored, speaking in complete sentences Skin: Warm, Dry, intact, no rashes Neuro: AO x3, CN II-XII grossly intact, moves all extremities, no tremor Course Orders Ordered: ED Orders 10/10/23 22:53 urine tox [Urine Drug Screen, Rapid] Stat Discontinued Medications Diazepam (Diazepam 10 Mg/2 Ml Syringe) 5 mg IV NOW ONE Stop: 10/10/23 23:30 Last Admin: 10/11/23 00:04 Dose: 5 mg Documented By: ADAN Diphenhydramine HCl (Diphenhydramine 50 Mg/Ml Vial) 50 mg IV NOW ONE Stop: 10/10/23 23:30 Last Admin: 10/11/23 00:04 Dose: 50 mg Documented By: ADAN Vital Signs Vital signs: Vital Signs - 8 hr 10/11/23 00:36 Pulse Rate 86 Respiratory Rate 16 Blood Pressure 121/72 Pulse Oximetry 98 Oxygen Delivery Method Room Air MDM - Recheck/Abnormal Lab/Rx Lab Data Labs: Lab Results 10/10/23 Range/Units 22:53 U Opiates 300ng/mL cut Negative (Negative) Ur Oxycodone Screen Negative (Negative) Urine Methadone Screen Negative (Negative) Ur Barbiturates Screen Negative (Negative) U Tricyclic Antidepress Positive H (Negative) Ur Phencyclidine Scrn Negative (Negative) Ur Amphetamines Screen Negative (Negative) U Methamphetamines Scrn Negative (Negative) Ur MDMA Scrn (Ecstasy) Negative (Negative) U Benzodiazepines Scrn Positive H (Negative) Urine Cocaine Screen Negative (Negative) U Marijuana (THC) Screen Positive H (Negative) Urine pH TNP Urine Specific [place] TNP Ur Creatinine TNP MDM Narrative Medical decision making narrative: Patient presenting for insomnia, restless legs. Could be related to droperidol received 24 hours ago. Patient overall well-appearing, he occasionally rubs his legs in the exam room but is sitting comfortably in bed, has no tremor, no tachycardia, no agitation, hemodynamically stable. Mother at bedside demanding child be fixed, using combative language with myself and nursing staff. Requested to speak to charge nurse, however when charge nurse when to speak to mother she stated she would talk to someone over your head. IV Versed and benadryl given. Patient resting calmly in bed, reports feeling better. Told nursing staff he would like to go home to try to sleep. Hydroxyzine for anxiety/sleep sent to pharmacy of choice. Patient discharged. Mother present to drive patient home. Discharge Plan Departure Patient Disposition: Home Clinical Impression: Insomnia Instructions: DI for Insomnia Activity Restrictions/Additional Instructions: A medication that can help with both anxiety and insomnia has been sent to your pharmacy. You may take this up to 3 times per day as needed. If you notice worsening problems with insomnia or anxiety I do recommend following up with a primary care doctor for further evaluation. Continue to avoid marijuana to prevent vomiting. Prescriptions: New hydroxyzine pamoate 50 mg capsule 50 mg PO TID PRN (Reason: anxiety) Qty: 30 0RF No Action loperamide 2 mg tablet 2 mg PO Q4H Qty: 14 0RF Rx Instructions: after each loose stool until symptoms controlled;do not exceed 16 mg total dose in 24 hrs oxycodone-acetaminophen 5 MG/325 MG tablet 1 tab PO Q4HP PRNQty: 30 0RF pantoprazole [Protonix] 40 mg tablet,delayed release (DR/EC) 40 mg PO DAILY Qty: 30 0RF ondansetron 4 mg tablet,disintegrating 4 mg PO TID-QID PRN (Reason: nausea and vomiting) Qty: 10 0RF Referrals: Miscellaneous,Doctor, MD [Primary Care Provider] - Stand Alone Forms: Patient Portal/API
[2023-10-10 23:57] LABS: UR Morphine/Opiate cutoff 300 Negative (Negative); Urine Amphetamines Negative (Negative); Urine Barbiturates Negative (Negative); Urine Benzodiazepines Positive (Negative); Urine Cocaine Negative (Negative); Urine MDMA Negative (Negative); Urine Methadone Negative (Negative); Urine Methamphetamines Negative (Negative); Urine Oxycodone Negative (Negative); Urine Phencyclidine Negative (Negative); Urine Tetrahydrocannabinol Positive (Negative); Urine Tricyclic Antidepressant Positive (Negative)
[2023-10-11] MEDS: diazePAM 10 MG/2 ML SYRINGE 5 MG IV (00:04)
[2023-10-11] MEDS: diphenhydrAMINE 50 MG/ML VIAL IV (00:04)
[2023-10-11 00:36] VITALS: BP 121/72; PULSE 86; RESP 16; O2SAT 98
== END 2023-10-11 01:03 | disposition home or self-care (01) ==
PROVIDERS: Emergency Provider Emergency Medicine
DX: G47.00 Insomnia, unspecified (principal); G25.81 Restless legs syndrome
CPT/HCPCS: 80305; 96374; 96375; 99283; J1200; J3360

== ENCOUNTER 2024-08-24 19:14 | Emergency (ER) | payer MEDICAID, SELFPAY ==
[2024-08-24] VITALS (8 sets, daily range): BP systolic 107–154; BP diastolic 54–94; PULSE 64–100; RESP 18; TEMP 36.8; O2SAT 95–100; BMI 27.7
--- NOTE | 2024-08-24 19:36 | ED.NAVMDI ---
HPI - Nausea/Vomiting/Diarrhea General Chief complaint: Nausea/Vomiting/Diarrhea Stated complaint: Nausea Time Seen by Provider: 08/24/24 19:29 Source: patient Mode of arrival: Ambulatory History of Present Illness HPI Narrative: 24-year-old gentleman with cannabinoid hyperemesis syndrome, has been avoiding marijuana for almost 6 months had a returned to use and presents with severe nausea vomiting and increasing abdominal pain started 4:00 a.m. this morning. I am going to keep any fluids down. He notes that he has had reactions to Haldol, droperidol and Reglan in the past when treated for similar symptoms. Related Data Previous Rx's ?Medication ?Instructions ?Recorded oxycodone-acetaminophen 5 mg-325 1 tab PO Q4HP PRN #30 tabs 10/15/16 mg tablet loperamide 2 mg tablet 2 mg PO Q4H #14 tabs 12/15/18 ondansetron 4 mg disintegrating 4 mg PO TID-QID PRN nausea and 09/20/22 tablet vomiting #10 tabs pantoprazole 40 mg tablet,delayed 40 mg PO DAILY #30 tabs 09/20/22 release (Protonix) hydroxyzine pamoate 50 mg capsule 50 mg PO TID PRN anxiety #30 caps 10/11/23 Allergies Allergy/AdvReac Type Severity Reaction Status Date / Time haloperidol (From Haldol) Allergy Severe Agitated Verified 08/24/24 19:26 droperidol AdvReac Muscle Pain Verified 08/24/24 19:26 Review of Systems Review of Systems Narrative: Pertinent positive and negative findings as per HPI Patient History Medical History History of appendicitis Social History Smoking Status: Never smoker Smoking Status: Never smoker tobacco type: cigarettes alcohol intake frequency: 0-2 drinks per day Exam Initial Vital Signs Initial Vital Signs: Vital Signs Temperature 98.3 F 08/24/24 19:26 Pulse Rate 68 08/24/24 19:26 Respiratory Rate 18 08/24/24 19:26 Blood Pressure 151/94 H 08/24/24 19:26 Pulse Oximetry 100 08/24/24 19:26 Oxygen Delivery Method Room Air 08/24/24 19:26 General: Pale, appears uncomfortable, dry heaving, cooperative HEENT: Dry mucous membranes, normal sclera with reactive pupils, Respiratory: Lungs are clear to auscultation, no wheezing no rales no rhonchi. Full and symmetrical air movement Cardiac: Tachycardic but otherwise Regular rate and rhythm no murmurs no bruits Abdomen: Soft, mild diffuse tenderness without rebound or guarding, no flank pain Neurologic: Grossly neurologically intact no lower extremity edema Psych: Cooperative, appropriate insight and affect Course Vital Signs Vital signs: Vital Signs - 8 hr 08/24/24 19:26 Temperature 98.3 F Pulse Rate 68 Respiratory Rate 18 Blood Pressure 151/94 H Pulse Oximetry 100 Oxygen Delivery Method Room Air MDM - Nausea/Vomiting/Diarrhea MDM Narrative Medical decision making narrative: 24-year-old gentleman with a history of alcohol use disorder and cannabinoid hyperemesis syndrome who has been free of both alcohol and cannabinoids for almost 6 months. Returned to use with marijuana and presents with severe vomiting that he has experienced previously when heavily smoking marijuana. Presumed to be cannabinoid hyperemesis syndrome previously. He has had adverse reactions to Haldol, droperidol and Reglan. He appears uncomfortable, dry heaving, but exam is otherwise benign without evidence of acute surgical abdomen CBC shows a white count of 22.8 which is close to where it is with all previous visits in the last 3 years with similar differential. No anemia Chemistries show no acute abnormalities, no acute kidney injury Lipase is unremarkable Alcohol in undetectable 9pm patient is re-evaluated. After a L of fluid 8 mg of Zofran, 5 mg of IV diazepam and 15 mg Toradol patient still says he has pain, nausea is better controlled, he is able to drink fluid and just produced urine sample that is quite concentrated. His mother is quite upset that he is ?been in the department for so long and has had nothing done, explained that the patient has been in the department for an hour and a half has had a complete exam, full medical workup, multiple medications and has been re-evaluated. Mother would like to go home, patient would like to try some pain medications and the additional fluid. With shared negotiating, we will do a small dose of narcotic pain medication and give him a 2 L of fluid as fast as we are able to do so and then plan on discharge home Discharge Plan Departure Patient Disposition: Home Clinical Impression: Cannabinoid hyperemesis syndrome Instructions: DI for Vomiting -- Adult Activity Restrictions/Additional Instructions: Your workup today was actually quite reassuring. There was no sign of significant infection, dehydration, kidney problems or reasons for hospitalization. You were given total of 2 L of IV fluid, 8 mg of ondansetron to help with nausea, 5 mg of IV diazepam to help with nausea, 15 mg of IV Toradol as well as 0.5 mg of IV Dilaudid to help with pain. It sounds like you have been doing well in your sobriety. Getting back to that plan and continuing to avoid any recreational drugs including marijuana and alcohol is going to be what it takes to avoid continued pain and vomiting like you are experiencing tonight. I wish you the best in getting back to your sobriety. If you find that you are getting worse or develop any new symptoms, please feel free to return to the emergency department for further evaluation. Prescriptions: No Action loperamide 2 mg tablet 2 mg PO Q4H Qty: 14 0RF Rx Instructions: after each loose stool until symptoms controlled;do not exceed 16 mg total dose in 24 hrs oxycodone-acetaminophen 5 MG/325 MG tablet 1 tab PO Q4HP PRNQty: 30 0RF pantoprazole [Protonix] 40 mg tablet,delayed release (DR/EC) 40 mg PO DAILY Qty: 30 0RF ondansetron 4 mg tablet,disintegrating 4 mg PO TID-QID PRN (Reason: nausea and vomiting) Qty: 10 0RF hydroxyzine pamoate 50 mg capsule 50 mg PO TID PRN (Reason: anxiety) Qty: 30 0RF Referrals: Miscellaneous,Doctor, MD [Primary Care Provider, Medical] Stand Alone Forms: Patient Portal/API
[2024-08-24 19:49] LABS: Add Manual Diff / Slide Review NO; Hematocrit 46.4 % (41-53); Hemoglobin 16.4 g/dL (13.5-17.5); Lymphocytes Absolute Auto 1000 /uL (1100-4500); Mean Corpuscular HGB Conc 35.3 % (30-36); Mean Corpuscular Hemoglobin 29.3 PG (26-34); Mean Corpuscular Volume 82.9 fL (80-100); Platelet Count 358 X10^3/uL (150-400)
[2024-08-24] MEDS: ONDANSETRON 4 MG/2 ML INJ 8 MG IV (19:49)
[2024-08-24] MEDS: KETOROLAC 30 MG/ML VIAL 15 MG IV (19:49)
[2024-08-24] MEDS: SODIUM CHLORIDE 0.9% 1,000 ML 1000 ML IV ×2 (19:50→21:12)
[2024-08-24 20:01] LABS: Lactate (Lactic Acid) 1.8 mmol/L (0.7-2.1)
[2024-08-24 20:03] LABS: Alanine Aminotransferase 36 IU/L (<50); Albumin 5.4 g/dL (3.5-5.0); Albumin Globulin Ratio 1.5 (1.0-2.8); Alkaline Phosphatase 76 U/L (38-126); Blood Urea Nitrogen 7 mg/dL (9-20); Calcium 10.2 mg/dL (8.4-10.2); Carbon Dioxide 18 mmol/L (22-32); Chloride 104 mmol/L (98-107); Estimated Glomerular Filt Rate > 60 mL/min (>60); Ethanol (ETOH) < 10 mg/dL (<10); Globulin 3.6 g/dL (1.7-4.1); Glucose 137 mg/dL (70-99); HEMOLYSIS < 15 (0-50); Lipase 66 U/L (23-300); Magnesium 1.7 mg/dL (1.6-2.3); Potassium 3.7 mmol/L (3.4-5.1); Sodium 141 mmol/L (137-145); Total Protein 9.0 g/dL (6.3-8.2)
[2024-08-24 21:06] LABS: Appearance Urine UA CLEAR; Bilirubin Urine UA 1+ (NEGATIVE); Color Urine UA YELLOW; Glucose Urine UA NEGATIVE (Negative); Ketones Urine UA 3+ (NEGATIVE); Leukocyte Esterase Urine UA NEGATIVE (NEGATIVE); Nitrite Urine UA NEGATIVE (Negative); Occult Blood Urine UA TRACE-INTACT (Negative); Protein Urine UA 1+ (Negative); Specific Gravity Urine UA 1.025 (1.000-1.035); Urobilinogen Urine UA 1.0 E.U./dL (0.2); pH Urine UA 8.0 (4.5-8.0)
[2024-08-24 21:09] LABS: UR Morphine/Opiate cutoff 300 Negative (Negative); Ur Specific Gravity Normal (Normal); Urine MDMA Negative (Negative); Urine Methamphetamines Negative (Negative); Urine Tetrahydrocannabinol Positive (Negative); Urine Tricyclic Antidepressant Negative (Negative)
[2024-08-24 21:27] LABS: Ictotest Urine Negative (Negative)
--- NOTE | 2024-08-24 21:27 | PC.NURSE ---
Pt resting on stretcher, RA, NAD, A&Ox4, breathing even/equal/unlabored at this time. Call light within reach, no other needs at this time.
[2024-08-24 21:28] LABS: Culture Indicated Urine Cult Not Indicated
== END 2024-08-24 21:35 | disposition home or self-care (01) ==
PROVIDERS: Emergency Provider Emergency Medicine
DX: R11.2 Nausea with vomiting, unspecified (principal); F12.90 Cannabis use, unspecified, uncomplicated; R10.9 Unspecified abdominal pain
CPT/HCPCS: 36415; 80053; 80305; 80320; 81001; 83605; 83690; 83735; 85025; 96361; 96374; 96375; 99284; J1171; J1885; J2405; J3360